=== PATIENT | male | born 1945 | race Caucasian/White ===

== ENCOUNTER → 2016-08-18 | Outpatient (CLI) | payer MEDICARE, OTHER ==
[2016-08-18 08:13] LABS: MEAN CORPUSCULAR HEMOGLOBIN 30.3 PG (26.0-34.0); MEAN CORPUSCULAR VOLUME 83 FL (80-100); MEAN PLATELET VOLUME 10.6 FL (6.0-9.5); PLATELET COUNT 174 10^3uL (150-450); WHITE BLOOD COUNT 6.14 10^3uL (4.0-11.0)
[2016-08-18 08:21] LABS: MEAN CORPUSCULAR HGB CONC 36.7 g/dL (31.0-37.0)
[2016-08-18 08:34] LABS: ALBUMIN 3.8 g/dL (3.4-5.0); ANION GAP 12.1 MEQ/L (3-15); CALCULATED IONIZED CALCIUM 4.3 mg/dL (3.8-4.6); MAGNESIUM* 1.9 mg/dL (1.6-2.3); TOTAL PROTEIN 6.4 g/dL (6.4-8.5)
[2016-08-18 08:51] LABS: BAND NEUTROPHILS % 0 % (0-6); EOSINOPHILS % 3 % (0-4); LYMPHOCYTES # 1.7 #; MONOCYTES # 0.4 #; MONOCYTES % 7 % (3-11); RBC MORPH NORMAL (NORMAL); SEGMENTED NEUTROPHILS % 55 % (51-67); TOTAL CELLS COUNTED 100
== END ==
LOC: LAB 07:59
PROVIDERS: ATTEND Internal Medicine
DX: Z00.00 Encounter for general adult medical examination without abnormal findings (principal); E11.9 Type 2 diabetes mellitus without complications; K21.9 Gastro-esophageal reflux disease without esophagitis; E78.4 Other hyperlipidemia; K22.70 Barrett's esophagus without dysplasia; Z12.5 Encounter for screening for malignant neoplasm of prostate
CPT/HCPCS: 36415; 80053; 80061; 82043; 83036; 83735; 84443; 85025; G0103; 84153

== ENCOUNTER → 2016-08-30 | Outpatient (CLI) | payer MEDICARE, OTHER | LOC: RAD 08:07 | PROVIDERS: ATTEND Internal Medicine | DX: Z13.6 Encounter for screening for cardiovascular disorders (principal) ==

== ENCOUNTER 2016-09-06 08:41 | Outpatient (RCR) | payer MEDICARE, OTHER ==
[~2016-09-06 08:41] MED LIST: ASCO10006 PO; ASPI-504 PO; ASPI325T4 PO; ATOR20TA PO; ATOR80TA73 PO; CALC600T12 PO; CHOL200044 PO; CYAN1TAB26 PO; FOLI0.8T PO; HYDR-3754 PO; MAGN200T PO; METAMUCIL1 EACH PO; METF500T4 PO; METH4TAB27 PO; MULT1TAB69 PO; NFLOSA25TA PO; NIAC500T9 PO; OMEP20CA12 PO; OMEP20TA PO; OMG1KC PO; PHEN-640 PO; POTA99TA3 PO; SIMV40TA; SULF-228 PO; TADA2.5T PO; VITA10007 PO; VITAMIN PO; ZINC50TA31 PO; [UNRECOGNIZED DRUG - CODE] PO; [UNRECOGNIZED DRUG - CODE] PO
== END 2016-11-28 17:08 | disposition home or self-care (01) ==
LOC: DT 08:41
PROVIDERS: ATTEND Internal Medicine
DX: E11.9 Type 2 diabetes mellitus without complications (principal); E66.3 Overweight; Z68.28 Body mass index [BMI] 28.0-28.9, adult; Z71.3 Dietary counseling and surveillance
CPT/HCPCS: 97803